=== PATIENT | female | born 1960 | race Caucasian/White ===

== ENCOUNTER → 2018-04-04 07:29 | Outpatient (CLI) | payer OTHER, SELFPAY ==
--- NOTE | 2018-04-04 07:00 | BI_ITS ---
MAMMOGRAPHY - BILATERAL SCREENING REASON FOR EXAM: Female, 57 years old. Routine annual screening examination. PERTINENT HISTORY: Grandmother with breast cancer. TECHNIQUE: Digital bilateral breast tarik (3D mammographic acquisition) in the CC and MLO projections. 2-D mediolateral oblique (MLO) and craniocaudad (CC) views of both breasts were obtained. CAD: Full Field Digital Mammography with Computer Added Detection was performed. COMPARISON: Comparison is made with prior study dated March 27, 2017 and March 02, 2016. FINDINGS: Breast Composition: There are scattered areas of fibroglandular density. There are no dominant masses or suspicious calcifications. No other significant abnormalities are identified. There has been no significant change since the prior study. BI/Bilat Brst Screen Tarik Add-On IMPRESSION: Stable bilateral screening mammogram. Yearly follow-up mammogram recommended. (A) ASSESSMENT CATEGORY: BIRADS Category 1: Negative. A letter regarding these results will be sent to the patient by the facility within 30 days. Approximately 10% of breast cancers are not detected by mammography. A normal mammogram should not delay biopsy of a clinically suspicious abnormality. [id number] Electronically Signed: Chad Schultz MD at 15:54 EDT Tel [phone], Service support ,
== END ==
PROVIDERS: Family Provider Family Medicine; PCP Family Medicine; Visit Provider Obstetrics & Gynecology Gynecology
DX: Z12.31 Encounter for screening mammogram for malignant neoplasm of breast (principal)
CPT/HCPCS: 77063; 77067

== ENCOUNTER → 2018-11-20 11:29 | Outpatient (CLI) | payer OTHER, SELFPAY ==
[2018-11-20 13:34] LABS: Potassium 4.3 mmol/L (3.5-5.1)
== END ==
PROVIDERS: Family Provider Family Medicine; PCP Family Medicine; Referring Provider Otolaryngology Otolaryngology/Facial Plastic Surgery; Visit Provider Otolaryngology Otolaryngology/Facial Plastic Surgery
DX: Z79.899 Other long term (current) drug therapy (principal)
CPT/HCPCS: 36415; 84132

== ENCOUNTER → 2019-04-06 | Outpatient (CLI) | payer OTHER, SELFPAY ==
--- NOTE | 2019-04-06 07:10 | BI_ITS ---
MAMMOGRAPHY - BILATERAL SCREENING REASON FOR EXAM: Female, 58 years old. Routine annual screening examination. PERTINENT HISTORY: Grandmother with breast cancer. TECHNIQUE: Digital bilateral breast tyler (3D mammographic acquisition) in the CC and MLO projections. 2-D mediolateral oblique (MLO) and craniocaudad (CC) views of both breasts were obtained. CAD: Full Field Digital Mammography with Computer Added Detection was performed. COMPARISON: Comparison is made with prior study dated April 04, 2018 and March 27, 2017. FINDINGS: Breast Composition: There are scattered areas of fibroglandular density. There are no dominant masses or suspicious calcifications. No other significant abnormalities are identified. There has been no significant change since the prior study. BI/SCREEN MAMM (CAD) W/TYLER BILAT IMPRESSION: Stable bilateral screening mammogram. Yearly follow-up mammogram recommended. (A) ASSESSMENT CATEGORY: BIRADS Category 1: Negative. A letter regarding these results will be sent to the patient by the facility within 30 days. Approximately 10% of breast cancers are not detected by mammography. A normal mammogram should not delay biopsy of a clinically suspicious abnormality. [id number] Electronically Signed: Chad Schultz, at 10:44 EDT , Service support ,
== END | disposition home or self-care (01) ==
LOC: OPBI 07:08
PROVIDERS: Family Provider Family Medicine; PCP Family Medicine; Referring Provider Obstetrics & Gynecology Gynecology; Visit Provider Obstetrics & Gynecology Gynecology
DX: Z12.31 Encounter for screening mammogram for malignant neoplasm of breast (principal)
CPT/HCPCS: 77063; 77067

== ENCOUNTER → 2020-06-08 07:23 | Outpatient (CLI) | payer OTHER, SELFPAY ==
--- NOTE | 2020-06-08 07:28 | BI_ITS ---
MAMMOGRAPHY - BILATERAL SCREENING 3-D TOMOSYNTHESIS REASON FOR EXAM: Female, 59 years old. Routine screening PERTINENT HISTORY: FM HX PAT GMA 75, CURRENT VAG HRT CREAM SINCE 04-13-18. TECHNIQUE: 2-D mammograms and 3-D Tomosynthesis of the breast (s) were performed. CAD was performed. COMPARISON: 04/06/2019 FINDINGS: The breast composition is composed of scattered fibroglandular density. Scattered benign calcifications are seen. No dense spiculated masses or suspicious microcalcifications are identified. No architectural distortion is identified. There is no skin thickening or retraction. There has been no significant change since the prior study. BI/SCREEN MAMM (CAD) W/TYLER BILAT IMPRESSION: No mammographic signs of malignancy. Routine yearly mammograms recommended. ASSESSMENT CATEGORY: BIRADS Category 1: Negative. A letter regarding these results will be sent to the patient by the facility within 30 days. FOLLOW UP RECOMMENDATION: Yearly follow up mammogram recommended. (A) Approximately 10% of breast cancers are not detected by mammography. A normal mammogram should not delay biopsy of a clinically suspicious abnormality. Electronically Signed: Addy Worrell MD at 10:34 EDT , Service support ,
== END ==
PROVIDERS: PCP Family Medicine; Referring Provider Obstetrics & Gynecology Gynecology; Visit Provider Obstetrics & Gynecology Gynecology
DX: Z12.31 Encounter for screening mammogram for malignant neoplasm of breast (principal)
CPT/HCPCS: 77063; 77067

== ENCOUNTER → 2021-09-06 07:09 | Outpatient (CLI) | payer OTHER, SELFPAY ==
--- NOTE | 2021-09-06 07:12 | BI_ITS ---
MAMMOGRAPHY - BILATERAL SCREENING REASON FOR EXAM: Female, 60 years old. Routine annual screening examination. PERTINENT HISTORY: Grandmother with breast cancer. TECHNIQUE: Digital bilateral breast tyler (3D mammographic acquisition) in the CC and MLO projections. 2-D mediolateral oblique (MLO) and craniocaudad (CC) views of both breasts were obtained. CAD: Full Field Digital Mammography with Computer Added Detection was performed. COMPARISON: Comparison is made with prior study dated 06/08/2020 and 04/06/2019. FINDINGS: Breast Composition: There are scattered areas of fibroglandular density. There are no dominant masses or suspicious calcifications. Stable small benign-appearing lateral axillary lymph nodes. No other significant abnormalities are identified. There has been no significant change since the prior study. BI/SCRN MAMM (CAD)W/TYLER BILAT IMPRESSION: Stable bilateral screening mammogram. Yearly follow-up mammogram recommended. (A) ASSESSMENT CATEGORY: BIRADS Category 2: Benign. A letter regarding these results will be sent to the patient by the facility within 30 days. Approximately 10% of breast cancers are not detected by mammography. A normal mammogram should not delay biopsy of a clinically suspicious abnormality. [id number] Electronically Signed: Chad Schultz MD at 8:27 EST , Service support ,
== END ==
PROVIDERS: PCP Family Medicine; Referring Provider Obstetrics & Gynecology Gynecology; Visit Provider Obstetrics & Gynecology Gynecology
DX: Z01.419 Encounter for gynecological examination (general) (routine) without abnormal findings (principal); Z12.31 Encounter for screening mammogram for malignant neoplasm of breast; L90.0 Lichen sclerosus et atrophicus
CPT/HCPCS: 77063; 77067

== ENCOUNTER 2022-09-26 07:38 | Outpatient (CLI) | payer OTHER, SELFPAY ==
--- NOTE | 2022-09-26 08:03 | BI_ITS ---
MAMMOGRAPHY - BILATERAL SCREENING REASON FOR EXAM: Female, 61 years old. Routine annual screening examination. PERTINENT HISTORY: Grandmother with breast cancer. TECHNIQUE: Digital bilateral breast tyler (3D mammographic acquisition) in the CC and MLO projections. 2-D mediolateral oblique (MLO) and craniocaudad (CC) views of both breasts were obtained. CAD: Full Field Digital Mammography with Computer Added Detection was performed. COMPARISON: Comparison is made with prior study dated 09/06/2021 and 06/08/2020. FINDINGS: Breast Composition: There are scattered areas of fibroglandular density. There are no dominant masses or suspicious calcifications. Stable small benign-appearing bilateral axillary lymph nodes. No other significant abnormalities are identified. There has been no significant change since the prior study. BI/SCRN MAMM (CAD)W/TYLER BILAT IMPRESSION: Stable bilateral screening mammogram. Yearly follow-up mammogram recommended. (A) ASSESSMENT CATEGORY: BIRADS Category 2: Benign. A letter regarding these results will be sent to the patient by the facility within 30 days. Approximately 10% of breast cancers are not detected by mammography. A normal mammogram should not delay biopsy of a clinically suspicious abnormality. [id number] Electronically Signed: Chad Schultz MD at 9:52 EST ,
== END 2022-09-26 23:59 | disposition home or self-care (01) ==
LOC: OPBI 08:01
PROVIDERS: PCP Family Medicine; Referring Provider Obstetrics & Gynecology Gynecology; Visit Provider Obstetrics & Gynecology Gynecology
DX: Z12.31 Encounter for screening mammogram for malignant neoplasm of breast (principal); Z01.419 Encounter for gynecological examination (general) (routine) without abnormal findings; Z80.3 Family history of malignant neoplasm of breast; R19.00 Intra-abdominal and pelvic swelling, mass and lump, unspecified site; L90.0 Lichen sclerosus et atrophicus
CPT/HCPCS: 77063; 77067

== ENCOUNTER → 2023-11-06 | Outpatient (CLI) | payer SELFPAY ==
--- NOTE | 2023-11-06 07:34 | BI_ITS ---
MAMMOGRAPHY - BILATERAL SCREENING REASON FOR EXAM: Female, 62 years old. Routine annual screening examination. PERTINENT HISTORY: Grandmother with breast cancer. TECHNIQUE: Digital bilateral breast tyler (3D mammographic acquisition) in the CC and MLO projections. 2-D mediolateral oblique (MLO) and craniocaudad (CC) views of both breasts were obtained. CAD: Full Field Digital Mammography with Computer Added Detection was performed. COMPARISON: Comparison is made with prior study dated September 26, 2022 and September 06, 2021. FINDINGS: Breast Composition: There are scattered areas of fibroglandular density. There are no dominant masses or suspicious calcifications. Stable small benign-appearing bilateral axillary lymph nodes. No other significant abnormalities are identified. There has been no significant change since the prior study. BI/SCRN MAMM (CAD)W/TYLER BILAT IMPRESSION: Stable bilateral screening mammogram. Yearly follow-up mammogram recommended. (A) ASSESSMENT CATEGORY: BIRADS Category 2: Benign. A letter regarding these results will be sent to the patient by the facility within 30 days. Approximately 10% of breast cancers are not detected by mammography. A normal mammogram should not delay biopsy of a clinically suspicious abnormality. [id number] Electronically Signed: Chad Schultz MD at 8:30 EST ,
--- OUTSIDE RECORDS SUMMARY | 2023-11-06 07:36 | XMS RPT_ITS | CCD ---
Author Name Unknown Address [address] [facility] [address] [place] [address] Organization [facility] Care Team Providers Care Pesticide Use Medical Coordinator Name Role Phone ROSE MONTANA MD Primary Care Physician MIAH BRITO PA-C Attending UnavailROSE Salamanca MD Primary Care Unavailable MIAH BRITO PA-C Referring UnavailROSE Salamanca MD Attending Unavailable ROSE MONTANA MD Primary Care Unavailable POLI RAMOS MD Attending Unavailable ROSE MONTANA MD Primary Care Unavailable ROSE MONTANA MD Attending Unavailable ROSE MONTANA MD Primary Care Unavailable ROSE MONTANA MD Attending Unavailable ROSE MONTANA MD Primary Care Unavailable Allergies Allergy Classification Reported Allergen(s) Allergy Type Date of Onset Reaction(s) Facility (3 sources) Azithromycin; Translations: [azithromycin] Drug Allergy Diarrhea (finding), [facility]iting (disorder) [facility] sources[facility] Codeine; Translations: [codeine] Drug Allergy Visual disturbance (disorder), Vomiting (disorder) [facility] (3 sources) Soybean preparation Drug Allergy Cutaneous eruption (morphologic abnormality) [facility] Baldev Medications Current Medications Medication Drug Class(es) Dates Sig (Normalized) Sig (Original) Tylenol (3 sources) Start: 06-05-2021 Tylenol Oral, 0 Refill(s) Start Date: 06/05/21 Status: Ordered [id number] 200 actuat albuterol 0.09 mg/actuat metered dose inhaler (3 sources) beta2-Adrenergic Agonist Start: 06-21-2022 take 2 puff(s) by inhalation every six hours as needed for wheezing ProAir HFA MDI (90 mcg/inh) inhalation aerosol 2 puff(s), Inhalation, q6h, PRN as needed for wheezing, # 8.5 gram(s), 2 Refill(s), [id number], Asthma, 151, cm, 06/21/22 7:51:00 EDT, Height, kg, 06/21/22 7:51:00 EDT, Dosing Weight Start Date: 06/21/22 Status: Ordered carvedilol 6.25 mg oral tablet (3 sources) alpha-Adrenergic Laura, beta-Adrenergic Laura Start: 12-07-2022 carvedilol 6.25 mg oral tablet Dose : 9.375 mg = 1.5 tab(s), Oral, BID, # 270 tab(s), 1 Refill(s), [id number], 150, cm, 09/18/22 14:44:00 EST, Height, kg, 09/18/22 14:44:00 EST, Dosing Weight Start Date: 12/07/22 Status: Ordered Problems Problem Classification Problem Date Documented Da te Episodic/Chronic Asthma (1 source) Asthma; Translations: [Unspecified asthma, uncomplicated] Chronic Biliary tract disease (3 sources) Biliary colic 05-22-2019 Episodic Cardiac dysrhythmias (3 sources) Tachycardia 11-23-2019 Episodic Conditions associated with dizziness or vertigo (3 sources) Meniere's disease 05-22-2019 Chronic Conditions associated with dizziness or vertigo (3 sources) Dizziness 11-13-2019 Episodic Essential hypertension (4 sources) Hypertensive disorder; Translations: [Essential hypertension] 07-26-2020 Chronic Nonspecific chest pain (3 sources) Chest pain; Translations: [Other chest pain] Episodic Other circulatory disease (3 sources) Elevated blood pressure 11-23-2019 Episodic Other connective tissue disease (1 source) Soft tissue lesion of shoulder region; Translations: [Other shoulder lesions, right shoulder] Episodic Other gastrointestinal disorders (3 sources) Irritable bowel syndrome 11-23-2019 Chronic Other lower respiratory disease (1 source) Dyspnea; Translations: [Shortness of breath] Episodic Other lower respiratory disease (2 sources) Dyspnea on exertion 04-17-2023 Episodic Residual codes; unclassified (3 sources) Postmenopausal state 05-22-2019 Episodic Residual codes; unclassified (1 source) Localized edema; Translations: [Localized edema] Episodic Residual codes; unclassified (2 sources) Edema of lower extremity 04-17-2023 Episodic Spondylosis; intervertebral disc disorders; other back problems (6 sources) Lumbar radiculitis; Translations: [Sciatica] 07-26-2020 Episodic Results Test Name Value Interpretation Reference Range Facil ity Encounters Encounter Date Encounter Type Care Provider Facility Start: 05-15-2023 End: 05-16-2023 ambulatory ROSE MONTANA MD Facility:B Start: 05-15-2023 End: 05-15-2023 Patient encounter procedure ROSE MONTANA MD [facility] Start: 04-17-2023 End: 04-18-2023 ambulatory ROSE MONTANA MD Facility:B Start: 04-17-2023 End: 04-17-2023 Patient encounter procedure ROSE MONTANA MD [facility] Start: 10-04-2022 End: 10-05-2022 ambulatory POLI RAMOS MD Facility:B Start: 07-06-2022 End: 07-07-2022 ambulatory ROSE MONTANA MD Facility:B Start: 06-12-2022 End: 08-28-2022 ambulatory MIAH BRITO PA-C Facility:B Start: 06-12-2022 End: 08-28-2022 Physical therapy management MIAH DANIELC [facility] Procedures Date Procedure Procedure Detail Performing Clinician Start: 10-21-2020 Spinal arthrodesis ANDREAS REED-C Endometrial ablation FRITZ REED-C Fallopian tube excision ANDREAS REED-C Immunizations Immunization Date Immunization Notes Care Provider Maame galvez 02-09-2021 SARS-CoV-2 (COVID-19 ) [id number] vaccine MIAH ALISHA RIVERA [facility] [place] Payers Date Payer Category Payer Unknown [id number] 1960 Unknown [id number] [id number] [id number] 1960 Unknown [id number] [id number] [id number] 1960 Unknown [id number] 2.16.8 [id number] 1960 Unknown [id number] 2.16.8 [id number] 1960 Unknown [id number] 2.16.8 [id number] Social History Date Type Detail Facility Start: 05-25-2019 Tobacco smoking status Never s moked tobacco (finding) [facility] Sex Assigned At Female [facility] Functional Status Date Assessment Result Facility 06-12-2022 Functional Status Home Living Ad ditional Information OBJECTIVE BP: 145/90 Transfers: WNL Sensation: no abnormaltiies or asymmetries reported Reflexes: NT Edema: none Cervical ROM: WNL Shoulder ROM: WNL - no restrictions but reports pain with flexion and abduction Special Tests Park et al:RTC Painful Arc: neg Drop Arm: neg Infraspinatus Test: neg Belly press: neg Full Can (delt): pos Empty Can (impin): neg [facility] Evaluation + Plan note 09-18-2022 Radiology Note Date & Type Note Facility 09-18-2022 Evaluation + Plan note Future Scheduled TestsMA Mammo Screening Bilateral w/ Tarik 09/18/22 [facility] Evaluation + Plan note Note Date & Type Note Facility Evaluation + Plan note Future Appointments Appointment Date:09/04/2022 03:30:00 PM Scheduled Provider:POLI RAMOS MD Location:[facility] Appointment Type: OV Annual Exam [facility] Hospital course Narrative Note Date & Type Note Facility Hospital course Narrative No data available for this section [facility] Hospital Discharge instructions Note Date & Type Note Facility Hospital Discharge instructions No data available for this section [facility] Progress note Note Date & Type Note Facility Progress note No data available for this section [facility] Summary Purpose Family History No Family History Records Found Advance Directives No Advanced Directives Records Found Additional Source Comments Care Team (unrecognized sect ion and content) Care Team Personnel Name: ROSE MONTANA MD Position: P4 Physician - Primary Care Member Role: Primary Care Physician Address: Address: [address] [place] [address]- Care Team Related Persons Name: BRENNAN MONTOYA Address: Home [address] [place] [phone] [place] Name: RADHAMESBERNADETTERANDY HUDSON Address: Home [address] [place] [phone] Patient Care team informatio n (unrecognized section and content) Care Team Personnel Name: ROSE MONTANA MD Position: P4 Physician - Primary Care Member Role: Primary Care Physician Address: Address: [address] [place] [id number]- Care Team Related Persons Name: BRENNAN MONTOYA Address: Home [address] [place] [phone] [place] Name: RADHAMESBERNADETTERANDY HUDSON Address: Home [address] [place], [place] [phone] Care Team Personnel Name: ROSE MONTANA MD Position: P4 Physician - Primary Care Member Role: Primary Care Physician Address: Address: [address] [place] [address]- Care Team Related Persons Name: LINDSAY BRENNAN A Address: Home [address] [place] [phone] [place] Name: SAULTRISTAN RANDY Address: Home [address] [place], [place] [phone] [place] INFORMATION SOURCE (unrecogn ized section and content) FOR RECORDS PERTAINING TO PATIENTS WHO ARE OR HAVE BEEN ENROLLED IN A CHEMICAL DEPENDENCY/SUBSTANCEABUSE PROGRAM, SOME INFORMATION MAY BE OMITTED. This clinical summary was aggregated from multiple sources. Caution should be exercised in using it in the provision of clinical care. This summary normalizes information from multiple sources, and as a consequence, information in this document may materially change the coding, format and clinical context of patient data. In addition, data may be omitted in some cases. CLINICAL DECISIONS SHOULD BE BASED ON THE PRIMARY CLINICAL RECORDS. [facility] [employer] [facility]. provides no warranty or guarantee of the accuracy or completeness of information in this document.
== END | disposition home or self-care (01) ==
PROVIDERS: PCP Family Medicine; Referring Provider Obstetrics & Gynecology Gynecology; Visit Provider Obstetrics & Gynecology Gynecology
DX: Z01.419 Encounter for gynecological examination (general) (routine) without abnormal findings (principal); L90.0 Lichen sclerosus et atrophicus; Z12.31 Encounter for screening mammogram for malignant neoplasm of breast
CPT/HCPCS: 77063; 77067

== ENCOUNTER → 2024-05-20 | Outpatient (CLI) | payer SELFPAY ==
--- NOTE | 2024-05-20 09:46 | NM_ITS ---
CLINICAL: 63-year-old female with history of right upper quadrant abdominal pain. RADIONUCLIDE HEPATOBILIARY SCINTIGRAPHY COMPARISON: None available FINDINGS: Following the intravenous administration of 5.5 mCi of 99m Tc Mebrofenin, hepatobiliary images reveal: 1. Relatively prompt and homogeneous radiopharmaceutical concentration is noted by a normal sized liver. No parenchymal defects are identified. 2. Gallbladder activity is identified at approximately 7 minutes post radiopharmaceutical administration. 3. Small intestinal tract is not visualized during 60 minutes of sequential imaging acquisition. Small bowel is observed at 75 minutes following tracer injection. 4. Washout of the radiopharmaceutical by the hepatic parenchyma appears qualitatively normal. NM/Hepatobilliary Imaging IMPRESSION: 1. ABNORMAL 99m Tc Mebrofenin hepatobiliary imaging examination. A. Visualization of the gallbladder within 60 minutes post radiopharmaceutical administration excludes acute cholecystitis with 97% certitude. (George et al, Nucl Med Latisha Karon Press pg. 35, 1981). B. Delayed small bowel demonstration (> 60 minutes) may represent partial common bile duct obstruction in the appropriate clinical setting. (Richelle et al, Semin Nucl Med 12: 53, 1982). Electronically Signed: Lit Gil DO at 23:07 EDT ,
== END | disposition home or self-care (01) ==
LOC: NM 09:42
PROVIDERS: PCP Family Medicine; Referring Provider Family Medicine; Visit Provider Family Medicine
DX: R10.11 Right upper quadrant pain (principal); R19.7 Diarrhea, unspecified
CPT/HCPCS: 78226; A9537

== ENCOUNTER → 2024-07-01 | Outpatient (CLI) | payer SELFPAY ==
--- NOTE | 2024-07-01 07:30 | US_ITS ---
INDICATION: RUQ PAIN GERD EXAMINATION: Ultrasound US Abdomen Limited (quadrant) TECHNIQUE: Mcgregor scale and color doppler imaging was performed of the right upper quadrant. COMPARISON: No relevant prior comparison study available FINDINGS: LIVER: The liver is heterogeneous echogenic in texture measuring about 2.5 cm in length. The portal vein is patent with normal hepatopedal flow. There is a 1.3 cm cyst in the right lobe of the liver adjacent to the gallbladder fossa. There is no free fluid. GALLBLADDER AND BILIARY TREE: No shadowing gallstone, pericholecystic fluid or gallbladder wall thickening is demonstrated. The gallbladder wall measures 1.4 mm. The proximal common bile duct measures 3.2 mm, which is within normal limits for the patient''s age. Sonographic Sanchez''s sign: Negative. PANCREAS: The pancreas as visualized on this examination is grossly unremarkable. RIGHT KIDNEY: The right kidney measures 9.8 cm in length. The renal cortex measures 1.2 cm. No evidence of hydronephrosis. US/Abdomen Limited IMPRESSION: 1. Hepatic steatosis. 2. Small liver cyst. 3. No evidence of gallstones. Electronically Signed: Benji Sesay MD at 15:22 EDT ,
[2024-07-01 08:40] LABS: AST(SGOT) 28 U/L (15-37); Alanine Aminotransfer ALT/SGPT 47 U/L (13-56); Albumin, Serum 3.8 g/dL (3.2-5.0); Alkaline Phosphatase 108 U/L (45-117); Bilirubin, Direct 0.16 mg/dL (0.00-0.30); Globulin 3.4 g/dL (2.2-4.2); Protein, Total 7.2 g/dL (6.4-8.2)
== END | disposition home or self-care (01) ==
PROVIDERS: PCP Family Medicine; Referring Provider Internal Medicine Gastroenterology; Visit Provider Internal Medicine Gastroenterology
DX: R10.11 Right upper quadrant pain (principal); K21.9 Gastro-esophageal reflux disease without esophagitis
CPT/HCPCS: 36415; 76705; 80076

== ENCOUNTER → 2024-12-23 | Outpatient (CLI) | payer SELFPAY ==
--- NOTE | 2024-12-23 07:15 | BI_ITS ---
PROCEDURE: SCRN MAMM (CAD)W/TYLER BILAT REASON FOR EXAM: F, Age 64 y/o, presents for annual screening mammogram. Family history of breast cancer in paternal grandmother at age 75. TECHNIQUE: Bilateral screening digital breast tomosynthesis with 2D and 3D images. Computer aided detection. COMPARISON: 11/06/2023, 09/26/2022 FINDINGS: There are scattered areas of fibroglandular density. No suspicious masses, areas of developing architectural distortion, or suspicious calcifications. BI/SCRN MAMM (CAD)W/TYLER BILAT IMPRESSION: There is no mammographic evidence of malignancy. BI-RADS 1: NEGATIVE. RECOMMEND ANNUAL MAMMOGRAPHIC SCREENING. Follow-up code: Routine Follow-up The patient will be notified of the results by letter. Reading Location: [id number]
== END | disposition home or self-care (01) ==
LOC: OPBI 07:13
PROVIDERS: PCP Family Medicine; Referring Provider Family Medicine; Visit Provider Family Medicine
DX: Z12.31 Encounter for screening mammogram for malignant neoplasm of breast (principal); Z80.3 Family history of malignant neoplasm of breast; I10 Essential (primary) hypertension; J45.909 Unspecified asthma, uncomplicated; K58.9 Irritable bowel syndrome, unspecified; Q61.00 Congenital renal cyst, unspecified
CPT/HCPCS: 77063; 77067